=== PATIENT | female | born 1960 | race Two or more races ===

== ENCOUNTER 2021-07-28 10:30 | Emergency (ER) | payer OTHER ==
[~2021-07-28] VITALS: Ht 165.1 cm; Wt 65.8 kg
[2021-07-28] MEDS ORDERED: SIMVASTATIN10 MG PO (11:19)
[2021-07-28] MEDS ORDERED: SYMBICORT 16010.2 GM (11:19)
[2021-07-28] MEDS ORDERED: ENALAPRIL MALEA10 MG (11:19)
[2021-07-28] MEDS ORDERED: SINGULAIR 10MG10 MG PO (11:20)
[2021-07-28] MEDS ORDERED: BETAMETHASONE D15 G2 TOP (12:17)
== END 2021-07-28 12:42 | disposition home or self-care (01) ==
LOC: ER 10:30
DX: L20.9 Atopic dermatitis, unspecified (principal); I10 Essential (primary) hypertension; Z88.6 Allergy status to analgesic agent; Z88.2 Allergy status to sulfonamides

== ENCOUNTER 2023-07-23 09:29 | Emergency (ER) | payer OTHER ==
[~2023-07-23] VITALS: Ht 165.1 cm; Wt 61.7 kg
[~2023-07-23 09:29] MED LIST: BETAMETHASONE D15 G2 TOP; ENALAPRIL MALEA10 MG; SIMVASTATIN10 MG PO; SINGULAIR 10MG10 MG PO; SYMBICORT 16010.2 GM
[2023-07-23] MEDS ORDERED: FAMOTIDINE40 MG PO (09:48)
== END 2023-07-23 12:19 | disposition home or self-care (01) ==
LOC: ER 09:29
DX: S91.121A Laceration with foreign body of right great toe without damage to nail, initial encounter (principal); W45.8XXA Other foreign body or object entering through skin, initial encounter; Y93.E8 Activity, other personal hygiene; Y92.018 Other place in single-family (private) house as the place of occurrence of the external cause; Z88.6 Allergy status to analgesic agent; Z88.2 Allergy status to sulfonamides; J45.909 Unspecified asthma, uncomplicated; K21.9 Gastro-esophageal reflux disease without esophagitis

== ENCOUNTER 2025-04-25 14:03 | Emergency (ER) | payer OTHER ==
[~2025-04-25] VITALS: Ht 165.1 cm; Wt 68.0 kg
[~2025-04-25 14:03] MED LIST changes: +FAMOTIDINE40 MG PO
[2025-04-25] MEDS ORDERED: VASOTEC2.5 MG (14:15)
[2025-04-25 16:05] LABS: BASO % 0.9 % (0.1-1.2); EOS # 0.13 (0.04-0.54); EOS % 1.1 % (0.7-7.0); LYMPH # 2.78 (1.18-3.74); LYMPH % 22.6 % (19.3-53.1); MEAN PLATELET VOLUME 8.50 fl (9.4-12.4); MONO # 0.65 (0.24-0.82); MONO % 5.3 % (4.7-12.5); NEUT # 8.61 (1.56-6.13); NEUT % 69.8 % (34.0-71.1); RED CELL DISTRIBUTION WIDTH 12.2 % (11.6-14.4)
[2025-04-25 16:25] LABS: INR 1.02
[2025-04-25 16:29] LABS: D DIMER 0.32 MG/L
[2025-04-25 16:32] LABS: ALT/SGPT 23.0 U/L (12-78); AST/SGOT 14.0 U/L (15-37); BILIRUBIN TOTAL 0.21 mg/dL (0.3-1.2); BUN CREA RATIO 19.0 (7.0-25.0); CREATININE SERUM 0.73 mg/dL (0.55-1.02); GFR 80.52; GLOBULINA 3.4 G/DL (2.4-3.5); GLUCOSE FASTING 100.0 mg/dL (65-100); OSMOLALITY SERUM 289.0 MOSM/KG (275-295)
[2025-04-25] MEDS ORDERED: AMOX-CLAV 875-1 EAC1 PO (17:54)
== END 2025-04-25 18:33 | disposition home or self-care (01) ==
LOC: ER 14:04
PROVIDERS: Student in an Organized Health Care Education/Training Program
DX: M79.672 Pain in left foot (principal); I10 Essential (primary) hypertension; Z88.2 Allergy status to sulfonamides; Z88.6 Allergy status to analgesic agent